=== PATIENT | male | born 1965 | race Caucasian/White ===

== ENCOUNTER 2017-05-22 10:18 | Inpatient (IN) ==
--- NOTE | 2017-05-22 10:24 | Emergency Department Note ---
Disposition Clinical Impression: Delirium due to general medical condition, Hyperkalemia, Hyperammonemia, Azotemia, Metabolic acidosis Pneumonia Qualifiers: Pneumonia type: due to unspecified organism Laterality: bilateral Lung location : unspecified part of lung Qualified Code(s): J18.9 - Pneumonia, unspecified organism Disposition: Admitted As Inpatient Condition: Serious Time of Disposition: 12:00 (Dr Alejandro) Recheck wound or abnormal lab - General Chief Complaint: ED Altered Mental Status Stated Complaint: hyperglycemia Time Seen by Provider: 05/22/17 10:23 Source: patient, family, EMS Mode of arrival: EMS Limitations: altered mental status Nursing Notes Reviewed: Yes Vital Signs Reviewed: Yes - History of Present Illness HPI Narrative: 48-year-old patient with a history of liver cancer presents to the ED secondary to altered mental status for 2 days. According to the spouse he has been decrease in his mental status along with elevated blood sugar. He underwent chemotherapy for the fourth time in May 16. The patient also has not been medically compliant for his lactulose secondary to his mental status change in the last 2 days. The patient's initial blood glucose at home was 412 and she gave him NovoLog reading increased to 419. The patient also has respiratory insufficiency and was recently discharged from hospital with bronchitis. Pt Subjective Complaint: abnormal lab(s) Symptoms Since Prior Visit: worsening pain Treatments prior to arrival: other (Insulin and increase in O2 requirement) - Related Data Home Medications Medication Instructions Recorded Confirmed Insulin Aspart Prot/Insuln Asp 5 - 20 unit SQ TID 04/07/15 05/22/17 [Novolog Mix 70-30 Flexpen Syrn] Lactulose 15 ml PO QID 04/07/15 05/22/17 Potassium Chloride [Klor-Con 20 meq PO DAILY 04/07/15 05/22/17 Sprinkle] Rifaximin [Xifaxan] 550 mg PO BID 04/07/15 05/22/17 Sertraline [Zoloft] 50 mg PO DAILY 04/07/15 05/22/17 Insulin Glargine,Hum.rec.anlog 20 unit SQ HS 09/05/15 05/22/17 [Lantus Solostar] Omeprazole [PriLOSEC] 20 mg PO DAILY 12/17/15 05/22/17 glipiZIDE [Glucotrol] 5 mg PO DAILY 12/20/15 05/22/17 Budesonide/Formoterol 160/4.5 2 puff IH BIDR 05/22/17 05/22/17 [Symbicort 160/4.5] Previous Rx's Medication Instructions Recorded Albuterol Neb [AccuNeb] 1.25 mg IH Q4H PRN #30 inhsol 05/04/17 Bumetanide [Bumex] 1 mg PO DAILY #30 tablet 05/04/17 Carvedilol 12.5 mg PO BID #60 tab 05/04/17 Montelukast [Singulair] 10 mg PO DAILY #30 tablet 05/04/17 Tiotropium [Spiriva] 18 mcg IH DAILYR #30 inh 05/04/17 HYDROcodone/Acet 5/325 mg [[place]anch 1 tab PO Q6H PRN 30 Days #30 tab 05/16/17 5-325 mg] HydrOXYzine 10 mg PO Q6H PRN #30 tablet 05/16/17 Allergies Allergy/AdvReac Type Severity Reaction Status Date / Time acetaminophen [From Tylenol] AdvReac Muscle Pain Verified 05/16/17 09:31 Oxycodone [From Percocet] AdvReac Itching Verified 05/16/17 09:31 Limitations: ROS unobtainable due to patients medical condition Past Medical History - Past Medical History Medical history: Reports: asthma, cardiomyopathy, CHF, diabetes, hypertension Surgical history: Reports: knee replacement, orthopedic, other, sinus surgery, ureteral stent, other Psychiatric history: Reports: anxiety, depression, previous psychiatric hospitalization - Social History Smoking Status: Current every day smoker Smokeless Tobacco Status: No Alcohol use: Reports: none Drug use: Reports: none, other Physical Exam - General Limitations: altered mental status General appearance: in distress - Head Head exam: atraumatic, normocephalic - Eye Eye exam: Present: PERRL. Absent: scleral icterus, conjunctival injection, nystagmus, miosis, mydriasis - ENT ENT exam: normal exam, mucous membranes dry - Neck Neck exam: Present: normal inspection. Absent: lymphadenopathy - Chest Chest inspection: Present: normal inspection, symmetric chest wall rise - Respiratory Respiratory exam: Present: respiratory distress, stridor, prolonged expiratory phase. Absent: wheezes, accessory muscle use - Cardiovascular Cardiovascular exam: Present: regular rate, normal rhythm, normal heart sounds. Absent: JVD - Abdominal Exam Abdominal exam: Present: soft, distention, normal bowel sounds, ascites. Absent : mass, bruit, pulsatile mass - Extremities Exam Extremities exam: Present: pedal edema (Right lower extremity), other (Left [id number] amputation) - Neurological Exam Neurological exam: Present: other (Oriented to name) - Skin Skin exam: Present: warm, dry, pallor Course Course Narrative: The patient was dynamically stable throughout ED course. The patient's mentation was likely secondary to mixed metabolic acidosis due to his dehydration, diabetes and pneumonia. Patient also had hyperkalemia secondary to worsening kidney function. The patient did improve after lactulose and his hyperkalemia was treated with Kayexalate, sodium bicarbonate, insulin, and albuterol treatments. I discussed with the family the patient's current prognosis and it was decided after discussion that the patient's CODE STATUS will be changed from focal to DNR CC. I sat at bedside with the and went over the difference between a DNR CC and DNR CCA status. Vital Signs Temperature 97.8 F 05/22/17 10:23 Pulse Rate 84 05/22/17 10:23 Respiratory Rate 18 05/22/17 10:23 Blood Pressure 130/64 05/22/17 10:23 O2 Sat by Pulse Oximetry 130 05/22/17 10:23 Temperature 97.0 F L 05/22/17 15:28 Pulse Rate 92 05/22/17 15:28 Respiratory Rate 21 05/22/17 15:59 Blood Pressure 95/62 05/22/17 15:28 O2 Sat by Pulse Oximetry 94 05/22/17 15:59 Oxygen Delivery Oxygen Delivery Simple Mask Recheck wound or abnormal lab - MDM Narrative Medical decision making narrative: Patient presents with acute respiratory insufficiency mostly secondary to bilateral pneumonia. The patient also has accompanying uncontrolled hyperglycemia, azotemia, hyperkalemia and encephalopathy secondary to respiratory acidosis and hyperammonemia. I discussed with the patient's family his results and discussed the current presentation with the hospitalist and agreed that we will keep the patient in this facility and will be reevaluated and determine if he will be transferred to tertiary facility. The patient's family will elect to keep him here and open to discussing hospice options. The patient was started on IV antibiotics, given albuterol/ipratropium treatment, Kayexalate and lactulose to treat his current presentation. The patient was stable on the NRB. The patient gradually improved with his mentation after initial treatment. Multiple discussions at bedside regarding the patient's CODE STATUS with his . She was given information regarding what DNR CC entails and was given documentation of what to expect. She will have the patient be placed as DNR CC. I did discuss this change in status with hospitalist and hospital strategic sourcing manager. - Lab Data Result diagrams: 05/22/17 10:45 05/22/17 14:35 Lab Results 05/22/17 05/22/17 05/22/17 Range/Units 10:45 10:45 10:45 WBC 17.5 H D (4.3-11.1) K/mcL RBC 3.32 L (4.19-5.50) M/mcL Hgb 9.6 L (12.9-16.9) g/dL Hct 30.2 L (37.5-50.1) % MCV 91.0 (83.0-100.0) fL MCH 28.9 (28.0-33.3) pg MCHC 31.8 (31.6-35.5) g/dL RDW 20.1 H (11.5-14.5) % Plt Count 72 L (140-400) K/mcL MPV 9.1 L (9.4-12.4) fL Seg Neutrophils % 72.0 % Band Neutrophils % 12.0 H (0-4) % Lymphocytes % 8.0 % Monocytes % 6.0 % Myelocytes % 2.0 H (0) % Neutrophils # 14.7 H (1.6-8.9) K/mcL Lymphocytes # 1.4 (0.6-4.6) K/mcL Monocytes # 1.1 (0.0-1.3) K/mcL Toxic Granulation Present A (Not Present) Toxic Vacuolation Present A (Not Present) Dohle Bodies Present A (Not Present) Platelet Estimate Decreased L (Normal) Anisocytosis 1+ A (Not Present) Sample Site ABG pH (7.32-7.45) pH Units ABG pCO2 (35-45) mmHg ABG pO2 (85-104) mmHg ABG HCO3 (21-27) mEq/L ABG Total CO2 (20-26) mEq/L ABG O2 Saturation (95-98) % ABG Base Excess (-2 to 3) mEq/L Clark Test Blood Gas Modality Inspired O2 (1-15=lpm [id number]=%) Sodium 126 L (136-145) mEq/L Potassium 7.2 H* (3.5-5.1) mEq/L Chloride 102 (98-107) mEq/L Carbon Dioxide 19 L (23-29) mEq/L BUN 82 H (6-20) mg/dL Creatinine 2.90 H (0.70-1.30) mg/dL Est GFR ( Amer) 28 L (> 60) Est GFR (Non-Af Amer) 23 L (> 60) BUN/Creatinine Ratio 28 H (6-26) Glucose 511 H* (70-105) mg/dL Calculated Osmolality 310 H (280-300) Lactic Acid (0.5-2.2) mmol/L Calcium 8.7 (8.6-10.3) mg/dL Total Bilirubin 0.7 (0.3-1.0) mg/dL AST 30 (13-39) Units/L ALT 32 (7-52) Units/L Alkaline Phosphatase 185 H (34-104) Units/L Ammonia (16-53) mcmol/L Serum Total Protein 7.0 (6.4-8.9) g/dL Albumin 2.4 L (3.5-5.7) g/dL Globulin 4.6 H (2.4-3.5) g/dL Albumin/Globulin Ratio 0.5 L (1.1-2.2) Beta-Hydroxybutyric Acd 0.17 (0.02-0.27) mmol/L 05/22/17 05/22/17 05/22/17 Range/Units 10:45 10:45 11:27 WBC (4.3-11.1) K/mcL RBC (4.19-5.50) M/mcL Hgb (12.9-16.9) g/dL Hct (37.5-50.1) % MCV (83.0-100.0) fL MCH (28.0-33.3) pg MCHC (31.6-35.5) g/dL RDW (11.5-14.5) % Plt Count (140-400) K/mcL MPV (9.4-12.4) fL Seg Neutrophils % % Band Neutrophils % (0-4) % Lymphocytes % % Monocytes % % Myelocytes % (0) % Neutrophils # (1.6-8.9) K/mcL Lymphocytes # (0.6-4.6) K/mcL Monocytes # (0.0-1.3) K/mcL Toxic Granulation (Not Present) Toxic Vacuolation (Not Present) Dohle Bodies (Not Present) Platelet Estimate (Normal) Anisocytosis (Not Present) Sample Site L Radial ABG pH 7.24 L (7.32-7.45) pH Units ABG pCO2 41 (35-45) mmHg ABG pO2 53 L (85-104) mmHg ABG HCO3 17 L (21-27) mEq/L ABG Total CO2 19 L (20-26) mEq/L ABG O2 Saturation 81 L (95-98) % ABG Base Excess -9 L (-2 to 3) mEq/L Clark Test N/A Blood Gas Modality NC Inspired O2 36.0 (1-15=lpm [id number]=%) Sodium (136-145) mEq/L Potassium (3.5-5.1) mEq/L Chloride (98-107) mEq/L Carbon Dioxide (23-29) mEq/L BUN (6-20) mg/dL Creatinine (0.70-1.30) mg/dL Est GFR ( Amer) (> 60) Est GFR (Non-Af Amer) (> 60) BUN/Creatinine Ratio (6-26) Glucose (70-105) mg/dL Calculated Osmolality (280-300) Lactic Acid 1.5 (0.5-2.2) mmol/L Calcium (8.6-10.3) mg/dL Total Bilirubin (0.3-1.0) mg/dL AST (13-39) Units/L ALT (7-52) Units/L Alkaline Phosphatase (34-104) Units/L Ammonia 74 H (16-53) mcmol/L Serum Total Protein (6.4-8.9) g/dL Albumin (3.5-5.7) g/dL Globulin (2.4-3.5) g/dL Albumin/Globulin Ratio (1.1-2.2) Beta-Hydroxybutyric Acd (0.02-0.27) mmol/L - EKG Data Rate: normal Rhythm: NSR Gepp/QRS: left axis deviation Interpretation: nonspecific ST-T wave changes Critical Care Time Critical Care Time: Yes Total Critical Care Time: 120 Attestation: Critical care performed: Time is exclusive of separately billable procedures. Time includes: direct patient care, patient reassessment, coordination of patient care, interpretation of data (laboratory data, radiology data, and respiratory data), review of patient's medical records, medical consultation and documentation of patient care. Procedures included in critical care time: Procedures excluded from critical care time:
[2017-05-22 10:57] LABS: Hematocrit 30.2 % (37.5-50.1); Hemoglobin 9.6 g/dL (12.9-16.9); Mean Corpuscular HGB Conc 31.8 g/dL (31.6-35.5); Mean Corpuscular Hemoglobin 28.9 pg (28.0-33.3); Mean Platelet Volume 9.1 fL (9.4-12.4); Red Blood Count 3.32 M/mcL (4.19-5.50); Red Cell Distribution Width 20.1 % (11.5-14.5)
[2017-05-22 11:05] LABS: Platelet Count 72 K/mcL (140-400)
[2017-05-22] MEDS: 0.9 % Sodium Chloride 1,000 ML IVC SCH ×2 (11:19→17:27)
[2017-05-22 11:23] LABS: Anisocytosis 1+ (Not Present); Dohle Bodies Present (Not Present); Lymphocytes # 1.4 K/mcL (0.6-4.6); Monocytes # 1.1 K/mcL (0.0-1.3); Neutrophils # 14.7 K/mcL (1.6-8.9); Platelet Estimate Decreased (Normal); Toxic Granulation Present (Not Present); Toxic Vacuolation Present (Not Present)
[2017-05-22 11:28] LABS: Albumin 2.4 g/dL (3.5-5.7); Albumin/Globulin Ratio 0.5 (1.1-2.2); Bilirubin,Total 0.7 mg/dL (0.3-1.0); Calcium 8.7 mg/dL (8.6-10.3); Globulin 4.6 g/dL (2.4-3.5); Potassium 7.2 mEq/L (3.5-5.1)
[2017-05-22 11:32] LABS: ABG Base Excess -9 mEq/L (-2 to 3); ABG HCO3 17 mEq/L (21-27); ABG Oxygen Saturation 81 % (95-98); ABG PCO2 41 mmHg (35-45); ABG PH 7.24 pH Units (7.32-7.45); ABG PO2 53 mmHg (85-104); ABG TCO2 19 mEq/L (20-26); Blood Gas Modality NC
[2017-05-22] MEDS ORDERED: Insulin Regular, Human 100 UNIT/ML IV ONE (11:33)
[2017-05-22] MEDS ORDERED: Lactulose Oral Soln 20 GM/30 ML UDC PO ONE (11:36)
[2017-05-22] MEDS ORDERED: Ipratropium/Albuterol Neb 3 ML IH ONE (11:37)
[2017-05-22] MEDS ORDERED: Levofloxacin 750 MG/150 ML 750 MG/150 ML BAG IVPB ONE (12:05)
[2017-05-22] MEDS ORDERED: 0.9 % Sodium Chloride 1,000 ML IVC SCH ×2 (12:45→14:53)
[2017-05-22] MEDS ORDERED: Cefepime HCl 2,000 MG in Water for inj. (sterile) 20 ML 20 ML IVP SCH ×2 (13:00→16:00)
[2017-05-22 13:48] LABS: ABG Base Excess -10 mEq/L (-2 to 3); ABG HCO3 17 mEq/L (21-27); ABG Oxygen Saturation 84 % (95-98); ABG PCO2 41 mmHg (35-45); ABG PH 7.23 pH Units (7.32-7.45); ABG PO2 57 mmHg (85-104); ABG TCO2 18 mEq/L (20-26); Blood Gas Modality 0XYMASK
[2017-05-22] MEDS ORDERED: Lactulose 200 GM/300 ML (for enema) RC SCH (14:53)
[2017-05-22] MEDS ORDERED: Naloxone 0.4 MG/ML INJ IVP PRN (14:53)
[2017-05-22] MEDS ORDERED: Acetaminophen 325 MG TABLET PO PRN (14:53)
[2017-05-22 15:06] LABS: Calcium 8.6 mg/dL (8.6-10.3); Potassium 6.7 mEq/L (3.5-5.1)
[2017-05-22] MEDS ORDERED: Albuterol 2.5 MG/3 ML NEBULIZER IH ONE (15:06)
[2017-05-22] MEDS ORDERED: Insulin Human Regular 10 UNIT in 0.9 % Sodium Chloride 10 ML IV ONE (15:06)
[2017-05-22] MEDS ORDERED: Albuterol 2.5 MG/3 ML NEBULIZER IH PRN (16:00)
[2017-05-22] MEDS ORDERED: Cefepime HCl 2,000 MG in D5% in Water (Mini-Bag+) 100 ML IVPB SCH (16:00)
[2017-05-22] MEDS ORDERED: traMADol 50 MG TABLET PO PRN (16:40)
[2017-05-22] MEDS ORDERED: *HR* LORazepam Oral Conc 2 MG/ML PO PRN (17:26)
[2017-05-22] MEDS: Morphine Oral CONC 5 MG/0.25 ML ORAL.SYG SL PRN ×2 (18:12→20:48)
--- NOTE | 2017-05-22 19:13 | Internal Med History&Physical ---
Date of Encounter: 05/22/17 Time of Encounter: 18:30 Assessment and Plan (1) Pneumonia Current visit: Yes Status: Acute He has received IV antibiotics in emergency room. Qualifiers: Pneumonia type: due to unspecified organism Laterality: bilateral Lung location: unspecified part of lung Qualified Code(s): J18.9 - Pneumonia, unspecified organism (2) Acute renal failure Current visit: Yes Status: Acute Will withhold diuretics and start IV fluids. Qualifiers: Acute renal failure type: unspecified Qualified Code(s): N17.9 - Acute kidney failure, unspecified (3) Anemia Current visit: No Status: Acute Chronic. Suspect significant dehydration and anticipate hemoglobin decrease from IV fluid administration. Qualifiers: Anemia type: iron deficiency Iron deficiency anemia type: unspecified iron deficiency Qualified Code(s): D50.9 - Iron deficiency anemia, unspecified (4) Hyperkalemia Current visit: Yes Status: Acute He has received Kayexalate and bicarbonate in emergency room. We will recheck labs in a.m. (5) Metabolic acidosis Current visit: Yes Status: Acute Will recheck labs in a.m. (6) Hepatocellular carcinoma Current visit: No Status: Acute As per oncologist (7) CKD (chronic kidney disease) stage 3, GFR 30-59 ml/min Current visit: No Status: Chronic We will give IV fluids and monitor renal indices. (8) DM type 2 (diabetes mellitus, type 2) Current visit: No Status: Chronic We will give IV fluids and do Accu-Cheks with SSI. Qualifiers: Diabetes mellitus complication status: with kidney complications Diabetes mellitus complication detail: with chronic kidney disease Diabetes mellitus termite control representative insulin use: without termite control representative use Chronic kidney disease stage: stage 3 (moderate) Qualified Code(s): E11.22 - Type 2 diabetes mellitus with diabetic chronic kidney disease Internal Medicine - H&P: HPI Chief complaint: Lethargy Admitted From: Emergency Dept Plans for Post Hospital Care: Home History of present illness: Mr. Howell is a 51 year old male who was brought to emergency room after family noted him to be lethargic. Fingersticks at home were elevated above 400 mg percent. He had increased dyspnea noted for the past 3 days with cough productive of green and yellow phlegm. He was evaluated in emergency room and felt to have bilateral pneumonia and acute renal failure. He was admitted [facility] floor for ongoing care needs. He is lethargic and cannot give additional history. The history is obtained from his and available old records. He was discharged from [facility] approximately 3 weeks ago following admission for bronchitis. His respiratory history is significant for having smoked since age 10 up to one pack per day. He has a diagnosis of COPD and wears oxygen at home. He had PFTs done approximately October 2013. Past Med Surg Social Fam HX - Past Medical History Medical history: asthma, cardiomyopathy, CHF, diabetes, hypertension Psychiatric history: anxiety, depression, previous psychiatric hospitalization - Past Surgical History Surgical History: knee replacement, orthopedic, other, sinus surgery, ureteral stent, other - Social History Smoking Status: Current every day smoker Smokeless Tobacco Status: No Alcohol use: none Drug use: none, other Internal Medicine - H&P: Meds Insulin Aspart Prot/Insuln Asp [Novolog Mix 70-30 Flexpen Syrn] 5 - 20 unit SQ TID 04/07/15 [History] Lactulose 15 ml PO QID 04/07/15 [History] Potassium Chloride [Klor-Con Sprinkle] 20 meq PO DAILY 04/07/15 [History] Rifaximin [Xifaxan] 550 mg PO BID 04/07/15 [History] Sertraline [Zoloft] 50 mg PO DAILY 04/07/15 [History] Insulin Glargine,Hum.rec.anlog [Lantus Solostar] 20 unit SQ HS 09/05/15 [History ] Omeprazole [PriLOSEC] 20 mg PO DAILY 12/17/15 [History] glipiZIDE [Glucotrol] 5 mg PO DAILY 12/20/15 [History] Albuterol Neb [AccuNeb] 1.25 mg IH Q4H PRN #30 inhsol 05/04/17 [Rx] Bumetanide [Bumex] 1 mg PO DAILY #30 tablet 05/04/17 [Rx] Carvedilol 12.5 mg PO BID #60 tab 05/04/17 [Rx] Montelukast [Singulair] 10 mg PO DAILY #30 tablet 05/04/17 [Rx] Tiotropium [Spiriva] 18 mcg IH DAILYR #30 inh 05/04/17 [Rx] HYDROcodone/Acet 5/325 mg [[place] 5-325 mg] 1 tab PO Q6H PRN 30 Days #30 tab [Rx] HydrOXYzine 10 mg PO Q6H PRN #30 tablet 05/16/17 [Rx] Budesonide/Formoterol 160/4.5 [Symbicort 160/4.5] 2 puff IH BIDR 05/22/17 [ History] 3 Allergy/AdvReac Type Severity Reaction Status Date / Time acetaminophen [From Tylenol] AdvReac Muscle Pain Verified 05/16/17 09:31 Oxycodone [From Percocet] AdvReac Itching Verified 05/16/17 09:31 All Systems PM: A 10-system review of systems was performed and is negative for pertinent findings except as documented above in the HPI. Review of systems: Review of systems from his recent [facility] admission were reviewed and revised as below. Gen.: His weight has decreased from 76.204 kg on admission 3 weeks ago to 68.946 kg today. Cardiovascular: He has history of hypertension but no ME or heart failure. He had right leg and possible right arm DVT. He has not had a heart cath . He had a stress test approximately 2013 without intervention.. An echocardiogram done 12/20/2015 showed LVEF of 55-60% with normal systolic and diastolic function. There was no significant valvular abnormality noted. Respiratory: As per history of present illness GI: He had hepatitis C diagnosed 1991. He has cirrhosis secondary to chronic hepatitis C. He has used alcohol in the past but his last drink was approximately 6 years ago. He does not have known exocrine pancreas disorder. He had EGD with gastric varices which were banded approximately October 2013. : He had kidney stones in 2010 with stents placed in 2011. He was told he had a nonfunctioning kidney. He does not follow with the urologist regular basis. He has CKD stage III from review of available records. He was scheduled to see a nc manager few days ago but was directed to the emergency room from the nc manager office because of significant ascites. Neurologic: He has had headaches occasionally. 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 A recommendation was made at [facility] discharge for repeat CT to be done one year later but this has not been done. He had Charlton's palsy 2007. He had hearing loss since childhood with multiple ear surgeries done. He has not had large distribution strokes. Endocrine: He was diagnosed with DM 2 approximately 2009. Hemoglobin A1c was 7.4% on 05/01/2017. He has hyperlipidemia but no known thyroid disease. Hematology/oncology: He has anemia and thrombocytopenia probably secondary to cirrhosis. MRI of abdomen 10/09/2016 showed 2.2 x 1.8 cm hypoenhancing lesion possibly representing hepatocellular carcinoma. He has received 4 cycles of chemotherapy for the malignancy. His believes it is primary liver cancer and has not metastasized. Psychiatric: He was hospitalized a mental health facility approximately 2005 but does not follow with mental health personnel now. His home medicine list includes Zoloft. Musk skeletal: He had left AKA November 2013 because of persistent infection of the left knee following knee replacement surgery. He has arthritis and osteoporosis history. - Constitutional Vitals: Temp Pulse Resp BP Pulse Ox 97.0 F L 92 21 95/62 94 05/22/17 15:28 05/22/17 15:28 05/22/17 15:59 05/22/17 15:28 05/22/17 15:59 Exam: General: He is well-developed lean male lying in bed who appears dyspneic HEENT: Head is atraumatic and normocephalic. Eyes: EOMI. There is no scleral icterus. Mouth: Mucosa is dry. Neck: Supple and nontender. There is no thyromegaly or adenopathy noted. Heart: Regular without murmurs gallops or ectopics Lungs: He has diminished breath sounds diffusely. No wheezes or crackles are heard. Abdomen: There is no significant ascites to percussion. The abdomen is soft and nontender. No masses or guarding are noted. Extremities: He has a left AKA which is well-healed. The right leg shows no cyanosis edema or clubbing noted. Dorsalis pedis and posterior tibial pulses are trace palpable bilaterally. Neurologic: Mental status: He is very lethargic but follows a few commands. He does not attempt to speak. Cranial nerves: Smile is symmetric. Forehead wrinkles bilaterally. Tongue protrudes midline. EOMI. Motor: There is impaired pronation attempt. There is no drift seen. Cerebellar: He does not complete finger to nose testing with either hand but does not have significant tremor or dysmetria. Skin: Warm and dry Internal Med - H&P Results - Labs CBC & Chem 7: 05/22/17 10:45 05/22/17 14:35 Labs: BMP 05/22/17 14:35 Sodium 131 L Potassium 6.7 H* Chloride 105 Carbon Dioxide 21 L BUN 82 H Creatinine 2.95 H Glucose 450 H Calcium 8.6 - ABG Interpretation ABG results: 05/22/17 13:42 ABG pH 7.23 L ABG pCO2 41 ABG pO2 57 L ABG HCO3 17 L ABG Total CO2 18 L ABG O2 Saturation 84 L ABG Base Excess -10 L
[2017-05-22] MEDS ORDERED: Insulin DETEMIR 100 UNIT/ML X5UNITS SQ SCH (21:00)
[2017-05-22] MEDS ORDERED: Budesonide/Formoterol 160/4.5 MDI IH SCH (22:00)
[2017-05-23] MEDS: Morphine Oral CONC 5 MG/0.25 ML ORAL.SYG SL PRN ×2 (01:54→11:10)
[2017-05-23 06:01] LABS: Hematocrit 33.3 % (37.5-50.1); Hemoglobin 10.4 g/dL (12.9-16.9); Mean Corpuscular HGB Conc 31.2 g/dL (31.6-35.5); Mean Corpuscular Hemoglobin 29.4 pg (28.0-33.3); Mean Corpuscular Volume 94.1 fL (83.0-100.0); Mean Platelet Volume 9.9 fL (9.4-12.4); Nucleated Red Blood Cells 0.1 /100 WBC (0); Platelet Count 118 K/mcL (140-400); Red Blood Count 3.54 M/mcL (4.19-5.50); Red Cell Distribution Width 20.8 % (11.5-14.5)
[2017-05-23 07:07] LABS: Albumin 2.4 g/dL (3.5-5.7); Albumin/Globulin Ratio 0.5 (1.1-2.2); Bilirubin,Total 0.8 mg/dL (0.3-1.0); Calcium 8.8 mg/dL (8.6-10.3); Globulin 4.8 g/dL (2.4-3.5); Magnesium 1.8 mg/dL (1.6-2.6); Potassium 6.8 mEq/L (3.5-5.1); Total Protein 7.2 g/dL (6.4-8.9)
[2017-05-23 07:25] LABS: ABG Base Excess -13 mEq/L (-2 to 3); ABG HCO3 21 mEq/L (21-27); ABG Oxygen Saturation 67 % (95-98); ABG PCO2 94 mmHg (35-45); ABG PH 6.95 pH Units (7.32-7.45); ABG PO2 56 mmHg (85-104); ABG TCO2 24 mEq/L (20-26)
[2017-05-23 07:29] LABS: Anisocytosis 1+ (Not Present); Lymphocytes # 0.8 K/mcL (0.6-4.6); Neutrophils # 39.9 K/mcL (1.6-8.9); Rouleaux Present (Not Present); Toxic Granulation Present (Not Present)
[2017-05-23 08:12] VITALS: BP 116/76
[2017-05-23] MEDS ORDERED: Bumetanide 1 MG TABLET PO SCH (09:00)
[2017-05-23] MEDS ORDERED: *HR* GlipiZIDE 5 MG TABLET PO SCH (09:00)
--- NOTE | 2017-05-23 09:55 | Discharge Summary ---
Date of Encounter: 05/23/17 Time of Encounter: 09:40 - Discharge Diagnosis (1) Pneumonia Priority: Primary Status: Acute Qualifiers: Pneumonia type: due to unspecified organism Laterality: bilateral Lung location: unspecified part of lung Qualified Code(s): J18.9 - Pneumonia, unspecified organism (2) Acute renal failure Priority: Secondary Status: Acute Qualifiers: Acute renal failure type: unspecified Qualified Code(s): N17.9 - Acute kidney failure, unspecified (3) Anemia Priority: Secondary Status: Acute Qualifiers: Anemia type: iron deficiency Iron deficiency anemia type: unspecified iron deficiency Qualified Code(s): D50.9 - Iron deficiency anemia, unspecified (4) Hyperkalemia Priority: Secondary Status: Acute (5) Metabolic acidosis Priority: Secondary Status: Acute (6) Hepatocellular carcinoma Priority: Secondary Status: Acute (7) CKD (chronic kidney disease) stage 3, GFR 30-59 ml/min Priority: Secondary Status: Chronic (8) DM type 2 (diabetes mellitus, type 2) Priority: Secondary Status: Chronic Qualifiers: Diabetes mellitus complication status: with kidney complications Diabetes mellitus complication detail: with chronic kidney disease Diabetes mellitus residential insulin use: without vegetable cook use Chronic kidney disease stage: stage 3 (moderate) Qualified Code(s): E11.22 - Type 2 diabetes mellitus with diabetic chronic kidney disease Hospital course: Mr. Howell is a 51 year old male who was brought to emergency room after family noted him to be lethargic. Fingersticks at home were elevated above 400 mg percent. He had increased dyspnea noted for the past 3 days with cough productive of green and yellow phlegm. He was evaluated in emergency room and felt to have bilateral pneumonia and acute renal failure. He was admitted to [facility] for ongoing care needs. Initial orders were written by the emergency room physician. I saw him the evening of May 22 and performed a history and physical. He was given IV vancomycin, Levaquin, and cefepime in the emergency room. Follow-up labs on May 23 showed significant worsening with WBC 40.7 with 82 segs and 16 bands. ABG showed pH 6.95 with PCO2 94 and PO2 56. Creatinine had risen to 3.64 with estimated GFR of 18. I explained to the family the seriousness of his condition and they wished him to be discharged home with hospice services. I feel this is reasonable. - Time Spent with Patient Total time spent providing and/or coordinating discharge services: - Discharge Medications Prescriptions: LORazepam Oral Conc [Ativan Oral Conc] 2 mg PO Q2HR PRN 10 Days #120 mls PRN Reason: Agitation Morphine Oral CONC [Roxanol] 0.5 ml PO Q1H PRN 10 Days #30 ml PRN Reason: Pain Home Medications: Insulin Aspart Prot/Insuln Asp [Novolog Mix 70-30 Flexpen Syrn] 5 - 20 unit SQ TID 04/07/15 [History] Lactulose 15 ml PO QID 04/07/15 [History] Potassium Chloride [Klor-Con Sprinkle] 20 meq PO DAILY 04/07/15 [History] Rifaximin [Xifaxan] 550 mg PO BID 04/07/15 [History] Sertraline [Zoloft] 50 mg PO DAILY 04/07/15 [History] Insulin Glargine,Hum.rec.anlog [Lantus Solostar] 20 unit SQ HS 09/05/15 [History ] Omeprazole [PriLOSEC] 20 mg PO DAILY 12/17/15 [History] glipiZIDE [Glucotrol] 5 mg PO DAILY 12/20/15 [History] Albuterol Neb [AccuNeb] 1.25 mg IH Q4H PRN #30 inhsol 05/04/17 [Rx] Bumetanide [Bumex] 1 mg PO DAILY #30 tablet 05/04/17 [Rx] Carvedilol 12.5 mg PO BID #60 tab 05/04/17 [Rx] Montelukast [Singulair] 10 mg PO DAILY #30 tablet 05/04/17 [Rx] Tiotropium [Spiriva] 18 mcg IH DAILYR #30 inh 05/04/17 [Rx] HYDROcodone/Acet 5/325 mg [[place] 5-325 mg] 1 tab PO Q6H PRN 30 Days #30 tab [Rx] HydrOXYzine 10 mg PO Q6H PRN #30 tablet 05/16/17 [Rx] Budesonide/Formoterol 160/4.5 [Symbicort 160/4.5] 2 puff IH BIDR 05/22/17 [ History] LORazepam Oral Conc [Ativan Oral Conc] 2 mg PO Q2HR PRN 10 Days #120 mls [Rx] Morphine Oral CONC [Roxanol] 0.5 ml PO Q1H PRN 10 Days #30 ml 05/23/17 [Rx] Allergies/Adverse Reactions: 3 Allergy/AdvReac Type Severity Reaction Status Date / Time acetaminophen [From Tylenol] AdvReac Muscle Pain Verified 05/16/17 09:31 Oxycodone [From Percocet] AdvReac Itching Verified 05/16/17 09:31 Date of admission: 05/22/17 19:26 Primary care physician: PCP NONE - Constitutional Vitals: Temp Pulse Resp BP Pulse Ox 95.8 F L 98 24 116/76 87 05/23/17 08:05 05/23/17 08:05 05/23/17 08:05 05/23/17 08:05 05/23/17 08:05 - Patient Status Disposition: Hospice - Home Condition: Critical Functional capacity at discharge: bed bound - Discharge Instructions
[2017-05-23] MEDS ORDERED: Tiotropium 18 MCG inhalation IH SCH (10:00)
[2017-05-23 19:57] LABS: Acinetobacter baumannii by PCR Not Detected (Not Detect); Candida albicans by PCR Not Detected (Not Detect); Candida glabrata by PCR Not Detected (Not Detect); Candida krusei by PCR Not Detected (Not Detect); Candida parapsilosis by PCR Not Detected (Not Detect); Candida tropicalis by PCR Not Detected (Not Detect); Enterococcus by PCR Not Detected (Not Detect); Escherichia coli by PCR Not Detected (Not Detect); Klebsiella oxytoca by PCR Not Detected (Not Detect); Klebsiella pneumoniae by PCR Not Detected (Not Detect); Pseudomonas aeruginosa by PCR Not Detected (Not Detect); Serratia marcescens by PCR Not Detected (Not Detect); Staphylococcus aureus by PCR ***DETECTED*** (Not Detect); Streptococcus agalactiae(B)PCR Not Detected (Not Detect); Streptococcus by PCR Not Detected (Not Detect); Streptococcus pneumoniae PCR Not Detected (Not Detect); Streptococcus pyogenes (A) PCR Not Detected (Not Detect); blaKPC Carbapenem-Resist Gene Not Detected (Not Detect); mecA Methicillin-Resist Gene ***DETECTED*** (Not Detect); vanA/B Vancomycin-Resist Genes Not Detected (Not Detect)
--- NOTE | 2017-05-24 10:37 | Electrocardiograph Report ---
[address] [place], [place] [address] Test Date: 2017-05-22 Pat Name: Cristiano Howell Department: [id number] Room: [facility] Gender: M Department Clinician: [id number] : 1965 Requested By: Bhanu Welsh Order Number: [id number] Reading MD: Min Clark DO Measurements Intervals [place] Rate: 80 P: 39 WI: 200 QRS: -26 QRSD: 101 T: 50 QT: 380 QTc: 415 Interpretive Statements SINUS RHYTHM BORDERLINE LEFT AXIS DEVIATION ANTEROSEPTAL T WAVES PEAKED, CONSIDER EARLY ISCHEMIA OR ELECTROLYTE ABNORMALITY Electronically Signed On 05-24-2017 10:35:47 EST by Min Clark DO
== END 2017-05-23 11:15 | disposition hospice, home (50) | DRG 139 ==
LOC: EMEROOPIK 10:18 → INPPIK 10:18
PROVIDERS: ADMIT Internal Medicine; ATTEND Internal Medicine